=== PATIENT | female | born 1955 | race Caucasian/White ===

== ENCOUNTER 2018-02-21 10:27 | Emergency (ER) | payer MEDICARE, MEDICAID ==
[~2018-02-21] VITALS: Ht 167.6 cm; Wt 117.5 kg
[~2018-02-21 10:27] MED LIST: AMLO2.5T2 PO; ASPI-1264 PO; CITA-278 PO; CLIN150C8 PO; CLOP75TA15 PO; LISI40TA4 PO; NICO-687 TP; SIMV20TA5 PO
[2018-02-21 10:52] LABS: BASOPHILS % (AUTO) 0.4 % (0-1); EOSINOPHILS # (AUTO) 0.1 X10'3 (0-0.9); EOSINOPHILS % (AUTO) 1.2 % (0-6); HEMATOCRIT 43.2 % (35.0-45.0); HEMOGLOBIN 14.5 g/dl (12.0-16.0); LYMPHOCYTES # (AUTO) 1.3 X10'3 (1.1-4.8); LYMPHOCYTES % (AUTO) 14.3 % (21-51); MEAN CORPUSCULAR HEMOGLOBIN 31.6 PG (27.0-31.0); MEAN CORPUSCULAR HGB CONC 33.6 % (33.0-36.5); MEAN PLATELET VOLUME 9.2 FL (7.4-10.4); MONOCYTES # (AUTO) 0.4 X10'3 (0-0.9); MONOCYTES % (AUTO) 4.5 % (2-12); NEUTROPHILS # (AUTO) 7.3 X10'3 (1.8-7.7); NEUTROPHILS % (AUTO) 79.6 % (42-75); PLATELET COUNT 144 X10'3 (140-440); RED BLOOD COUNT 4.59 X10'6 (4.20-5.60); RED CELL DISTRIBUTION WIDTH 13.3 % (11.5-14.5); WHITE BLOOD COUNT 9.1 X10'3 (4.5-11.0)
[2018-02-21 11:06] LABS: ALANINE AMINOTRANSFERASE 23 U/L (12-78); ALBUMIN 3.9 G/DL (3.4-5.0); ALBUMIN/GLOBULIN RATIO 1.1 (1.1-1.5); ALKALINE PHOSPHATASE 78 IU/L (46-116); ANION GAP 7 (8-16); ASPARTATE AMINO TRANSFERASE 15 U/L (10-37); BILIRUBIN,TOTAL 0.4 MG/DL (0.1-1.0); BLOOD UREA NITROGEN 15 MG/DL (7-18); BUN/CREATININE RATIO 22.7 (6.6-38.0); CALCIUM 8.7 MG/DL (8.5-10.1); CHLORIDE 104 MMOL/L (99-107); CREATININE 0.66 MG/DL (0.40-0.90); GLUCOSE 131 MG/DL (70-104); POTASSIUM 3.6 MMOL/L (3.5-5.1); SODIUM 141 MMOL/L (135-145); TOTAL CARBON DIOXIDE 29.6 MMOL/L (24-32); TOTAL PROTEIN 7.4 G/DL (6.4-8.2); eGFR > 90 ML/MIN
[2018-02-21 11:08] LABS: PARTIAL THROMBOPLASTIN TIME 25 SECONDS (22-32); PROTHROMBIN TIME 10.3 SECONDS (9.0-12.0)
[2018-02-21 11:32] LABS: D-DIMER 0.59 MG/L FEU (0-0.50)
[2018-02-21] MEDS ORDERED: ipratropium/albuterol 3ml nebule NEB ONE (11:35)
[2018-02-21] MEDS ORDERED: ketorolac trometh. 30mg/ml inj. IV ONE (11:35)
[2018-02-21 11:38] LABS: LARGE PLATELETS FEW; PLATELET ESTIMATE NORMAL; STOMATOCYTES 1+
[2018-02-21] MEDS ORDERED: ALBU18HF2 INH (12:00)
[2018-02-21] MEDS ORDERED: LEVO500T89 PO (12:00)
[2018-02-21] MEDS ORDERED: PRED20TA PO (12:00)
[2018-02-21 12:08] VITALS: BP 119/62
== END 2018-02-21 12:18 | disposition home or self-care (01) ==
LOC: ER 10:27
DX: J40 Bronchitis, not specified as acute or chronic (principal); E78.00 Pure hypercholesterolemia, unspecified; I10 Essential (primary) hypertension; K21.9 Gastro-esophageal reflux disease without esophagitis; M19.90 Unspecified osteoarthritis, unspecified site; F17.200 Nicotine dependence, unspecified, uncomplicated; Z88.0 Allergy status to penicillin; Z88.5 Allergy status to narcotic agent; Z88.1 Allergy status to other antibiotic agents; Z88.8 Allergy status to other drugs, medicaments and biological substances; Z79.82 Long term (current) use of aspirin; Z79.2 Long term (current) use of antibiotics; Z79.899 Other long term (current) drug therapy; Z59.0 Homelessness; Z56.0 Unemployment, unspecified
CPT/HCPCS: 36415; 71045; 80053; 83880; 84145; 84484; 85025; 85379; 85610; 85730; 93005; 94640; 94660; 94760; 96374; 99285; J1885

== ENCOUNTER 2020-09-12 23:15 | Emergency (ER) | payer MEDICARE, MEDICAID ==
[~2020-09-12] VITALS: Ht 167.6 cm; Wt 136.4 kg
[~2020-09-12 23:15] MED LIST changes: +ALBU18HF2 INH; -CITA-278 PO; +CITA20TA28 PO; +LISI40TA13 PO; -LISI40TA4 PO; +SIMV-42 PO; -SIMV20TA5 PO
[2020-09-12 23:25] VITALS: BP 13/90
[2020-09-13] MEDS ORDERED: SULF1TAB49 PO (00:57)
[2020-09-13] MEDS ORDERED: CEPH250T PO (00:57)
[2020-09-13] MEDS ORDERED: sulfamethoxazole/trimethoprim DS (800/160mg) tablet PO ONE (01:00)
[2020-09-13] MEDS ORDERED: oxyCODONE/APAP 5-325mg tablet PO ONE (01:00)
[2020-09-13] MEDS ORDERED: cephalexin 500mg capsule PO ONE (01:00)
== END 2020-09-13 01:43 | disposition home or self-care (01) ==
LOC: ER 23:16
DX: S81.801A Unspecified open wound, right lower leg, initial encounter (principal); L03.115 Cellulitis of right lower limb; I10 Essential (primary) hypertension; E78.00 Pure hypercholesterolemia, unspecified; K21.9 Gastro-esophageal reflux disease without esophagitis; M19.90 Unspecified osteoarthritis, unspecified site; Z56.0 Unemployment, unspecified; Z59.0 Homelessness; Z88.0 Allergy status to penicillin; Z88.1 Allergy status to other antibiotic agents; Z88.6 Allergy status to analgesic agent; Z79.899 Other long term (current) drug therapy; Z91.048 Other nonmedicinal substance allergy status; Z79.82 Long term (current) use of aspirin; X58.XXXA Exposure to other specified factors, initial encounter; Y93.89 Activity, other specified; Y92.89 Other specified places as the place of occurrence of the external cause; Y99.8 Other external cause status
CPT/HCPCS: 99284

== ENCOUNTER 2020-12-05 15:03 | Emergency (ER) | payer MEDICARE, MEDICAID ==
[~2020-12-05] VITALS: Ht 167.6 cm; Wt 113.0 kg
[~2020-12-05 15:03] MED LIST changes: +CEPH250T PO
[2020-12-05 15:10] VITALS: BP 172/92
[2020-12-05 16:05] LABS: BASOPHILS % (AUTO) 0.6 % (0-1); EOSINOPHILS # (AUTO) 0.1 X10'3 (0-0.9); EOSINOPHILS % (AUTO) 1.2 % (0-6); HEMATOCRIT 39.5 % (35.0-45.0); HEMOGLOBIN 13.1 g/dl (12.0-16.0); LYMPHOCYTES # (AUTO) 1.3 X10'3 (1.1-4.8); LYMPHOCYTES % (AUTO) 16.8 % (21-51); MEAN CORPUSCULAR HEMOGLOBIN 29.3 PG (27.0-31.0); MEAN CORPUSCULAR HGB CONC 33.2 g/dL (33.0-36.5); MEAN CORPUSCULAR VOLUME 88.1 FL (78-98); MONOCYTES # (AUTO) 0.5 X10'3 (0-0.9); NEUTROPHILS # (AUTO) 5.7 X10'3 (1.8-7.7); NEUTROPHILS % (AUTO) 75.4 % (42-75); PLATELET COUNT 182 X10'3 (140-440); RED BLOOD COUNT 4.48 X10'6 (4.20-5.60); RED CELL DISTRIBUTION WIDTH 14.4 % (11.5-14.5); WHITE BLOOD COUNT 7.5 X10'3 (4.5-11.0)
[2020-12-05 16:20] LABS: ALANINE AMINOTRANSFERASE 22 U/L (12-78); ALBUMIN 3.8 G/DL (3.4-5.0); ALBUMIN/GLOBULIN RATIO 0.9 (1.1-1.5); ALKALINE PHOSPHATASE 108 IU/L (46-116); ANION GAP 9 (8-16); ASPARTATE AMINO TRANSFERASE 15 U/L (10-37); BILIRUBIN,TOTAL 0.6 MG/DL (0.1-1.0); BLOOD UREA NITROGEN 11 MG/DL (7-18); BUN/CREATININE RATIO 14.1 (6.6-38.0); CALCIUM 8.5 MG/DL (8.5-10.1); CHLORIDE 104 MMOL/L (99-107); CREATININE 0.78 MG/DL (0.40-0.90); GLUCOSE 115 MG/DL (70-104); POTASSIUM 3.3 MMOL/L (3.5-5.1); SODIUM 143 MMOL/L (135-145); TOTAL CARBON DIOXIDE 29.9 MMOL/L (24-32); TOTAL PROTEIN 7.9 G/DL (6.4-8.2); eGFR 75 ML/MIN
== END 2020-12-05 21:54 | disposition left against medical advice (07) ==
LOC: ER 15:04
DX: S80.921A Unspecified superficial injury of right lower leg, initial encounter (principal); Z53.21 Procedure and treatment not carried out due to patient leaving prior to being seen by health care provider; X58.XXXA Exposure to other specified factors, initial encounter; Y93.9 Activity, unspecified; Y92.9 Unspecified place or not applicable; Y99.9 Unspecified external cause status
CPT/HCPCS: 36415; 80053; 83605; 84145; 85025; 87040